=== PATIENT | female | born 1990 | race Caucasian/White ===

== ENCOUNTER 2020-08-26 16:45 | Outpatient (CLI) | payer OTHER ==
--- NOTE | 2020-08-26 17:12 | XRAY Report ---
PROCEDURE: Chest 2 View X-Ray INDICATIONS: CHONDROCOSTAL JUNCTION SYNDROME TECHNIQUE: 2 view(s) of the chest. COMPARISON: None. FINDINGS: Surgical changes and devices: None. Lungs and pleura: No pleural effusions or pneumothorax. Lungs are clear. Mediastinum: Mediastinal contours are normal. Heart size is normal. Bones and chest wall: No suspicious bony abnormalities. Soft tissues appear unremarkable. IMPRESSION: No acute cardiopulmonary pathology. No gross osseous abnormality is seen. Reviewed by: Douglas Vasquez MD on 08/26/2020 5:10 PM PDT Approved by: Douglas Vasquez MD on 08/26/2020 5:10 PM PDT Station ID: [id number]
== END 2020-08-26 16:46 | disposition home or self-care (01) ==
LOC: DI.N 16:45
PROVIDERS: ATTEND Physician Assistant
DX: M94.0 Chondrocostal junction syndrome [Tietze] (principal)

== ENCOUNTER 2020-10-13 17:04 | Outpatient (CLI) | payer OTHER | END 2020-10-13 23:59 | disposition home or self-care (01) | LOC: LAB.N 17:04 | PROVIDERS: ATTEND Family Medicine | DX: R07.89 Other chest pain (principal); M94.0 Chondrocostal junction syndrome [Tietze] | CPT/HCPCS: 36415; 85379 ==